=== PATIENT | male | born 1980 | race Caucasian/White ===

== ENCOUNTER 2016-11-03 03:04 | Emergency (ER) | payer SELFPAY ==
[~2016-11-03 03:04] MED LIST: AMOXICILLIN PO; AMOXICILLIN500 M1 PO; ATARAX PO; BENADRYL ALLERG1 TAB PO; CLEOCIN PO; CORTISPORIN OTIC; ELIMITE TOP; FLEXERIL PO; IBUPROFEN PO; MUCINEX DM1 TAB.SR . PO; NORCO 5/325 TAB1 TAB PO; ORUDIS75 M1 PO; PENICILLIN PO; ULTRAM PO; VICODIN 5/1 TAB 5/50 PO; VICODIN 5/500 T1 TAB PO; ZITHROMAX PO
== END 2016-11-03 04:21 | disposition home or self-care (01) ==
LOC: SED 03:04
DX: S46.912A Strain of unspecified muscle, fascia and tendon at shoulder and upper arm level, left arm, initial encounter (principal); B35.4 Tinea corporis; F17.210 Nicotine dependence, cigarettes, uncomplicated; V89.2XXA Person injured in unspecified motor-vehicle accident, traffic, initial encounter
CPT/HCPCS: 99283